=== PATIENT | male | born 1990 | race Caucasian/White ===

== ENCOUNTER 2018-09-18 07:39 | Emergency (ER) | payer MEDICAID ==
[~2018-09-18] VITALS: Ht 188 cm; Wt 78.4 kg
[2018-09-18 07:47] VITALS: BP 131/78
[2018-09-18] MEDS ORDERED: CHLO473M3 PO (08:27)
[2018-09-18] MEDS ORDERED: AMOX-580 PO (08:27)
[2018-09-18] MEDS ORDERED: ketorolac trometh inj. 60 MG/2 ML VIAL IM ONE (08:30)
== END 2018-09-18 08:44 | disposition home or self-care (01) ==
LOC: ER 07:40
DX: K04.7 Periapical abscess without sinus (principal); K02.9 Dental caries, unspecified
CPT/HCPCS: 96372; 99283; J1885